=== PATIENT | male | born 1980 | race Caucasian/White ===

== ENCOUNTER 2024-08-09 07:40 | Day surgery (SDC) | payer BC ==
[~2024-08-09 07:40] MED LIST: Midazolam 1 MG/ML 2 ML SDV ONE; Propofol 200 MG/20 ML SDV ONE; fentaNYL 50 MCG/ML SDV ONE
[2024-08-09] MEDS ORDERED: Sodium Chloride 0.9% 1,000 ML IV SCH (08:15)
[2024-08-09] MEDS ORDERED: Propofol 200 MG/20 ML SDV ONE (10:04)
== END 2024-08-09 11:17 | disposition home or self-care (01) ==
LOC: JP.SDS 07:40
PROVIDERS: ATTEND Surgery
DX: R10.13 Epigastric pain (principal); K21.9 Gastro-esophageal reflux disease without esophagitis; E66.9 Obesity, unspecified
CPT/HCPCS: 00731-QZ; 88305; J2250; J2704; J3010